=== PATIENT | female | born 1960 ===

== ENCOUNTER 2021-11-12 05:25 | Day surgery (SDC) | payer OTHER ==
[2021-11-12] MEDS ORDERED: PERCOCET 5-3251 EACH PO (08:30)
== END 2021-11-12 10:35 | disposition home or self-care (01) ==
LOC: CIR.AMB 05:25
PROVIDERS: ATTEND Surgery
DX: D35.1 Benign neoplasm of parathyroid gland (principal); E21.0 Primary hyperparathyroidism; Z88.0 Allergy status to penicillin; Z88.6 Allergy status to analgesic agent